=== PATIENT | female | born 1935 | race Caucasian/White ===

== ENCOUNTER 2020-04-28 12:23 | Inpatient (IN) ==
[2020-04-28 13:24] LABS: INR 1.1
[2020-04-28 13:27] LABS: Activated Partial Thrombo Time 30.9 Seconds (26.0-36.0)
[2020-04-28 13:28] LABS: Basophils % 0.6 %; Eosinophils # 0.1 K/mcL (0.0-0.6); Hemoglobin 12.6 g/dL (11.5-15.4); Immature Granulocytes % 0.2 % (0-4); Lymphocytes # 1.6 K/mcL (0.6-4.6); Lymphocytes % 25.6 %; Mean Corpuscular HGB Conc 33.2 g/dL (31.6-35.5); Mean Corpuscular Hemoglobin 29.6 pg (28.0-33.3); Mean Corpuscular Volume 89.4 fL (83.0-100.0); Mean Platelet Volume 10.8 fL (9.4-12.4); Monocytes # 0.4 K/mcL (0.0-1.3); Monocytes % 5.7 %; Neutrophils # 4.2 K/mcL (1.6-8.9); Platelet Count 248 K/mcL (140-400); Red Blood Count 4.25 M/mcL (3.82-4.97); Red Cell Distribution Width 14.3 % (11.5-14.5); Segmented Neutrophils % 66.9 %; White Blood Count 6.3 K/mcL (4.3-11.1)
[2020-04-28 13:44] LABS: BUN/Creatinine Ratio 20 (6-26); Blood Urea Nitrogen 21 mg/dL (8-23); Calcium 9.1 mg/dL (8.6-10.3); Carbon Dioxide 22 mEq/L (23-29); Chloride 108 mEq/L (98-107); Glucose 113 mg/dL (70-105); Lipase 41 Units/L (11-82); Osmolality,Calculated 294 (280-300); Potassium 3.9 mEq/L (3.5-5.1); Sodium 140 mEq/L (136-145); Troponin I 0.03 ng/mL (< 0.04); eGFR For African Americans > 60 (> 60); eGFR For Non-African Americans 51 (> 60)
[2020-04-28] MEDS ORDERED: cefTRIAXone 1,000 MG in 0.9 % Sodium Chloride Mini Bag 100 ML IVPB ONE (14:01)
[2020-04-28] MEDS ORDERED: Azithromycin 500 MG in 0.9 % Sodium Chloride 250 ML IVPB ONE (14:01)
[2020-04-28] MEDS ORDERED: Aspirin 325 MG TABLET PO ONE (14:05)
[2020-04-28] MEDS ORDERED: cefTRIAXone 1,000 MG in Water for inj. (sterile) 10 ML IVP ONE (14:15)
[2020-04-28] MEDS ORDERED: Water for inj. (sterile) 10 ML ONE (14:42)
[2020-04-28] MEDS ORDERED: Perflutren Lipid Microsphere 1.3 ML in 0.9 % Sodium Chloride 8.7 ML IVP PRN (15:51)
[2020-04-28] MEDS ORDERED: Naloxone 0.4 MG/ML INJ IVP PRN (15:51)
[2020-04-28] MEDS ORDERED: Acetaminophen 325 MG TABLET PO PRN (15:51)
[2020-04-28] MEDS ORDERED: Ondansetron 4 MG/2 ML VIAL IVP PRN (15:51)
[2020-04-28] MEDS ORDERED: *HR* HYDROcodone/Acet 5/325 mg TABLET PO PRN (15:51)
[2020-04-28 16:22] LABS: Cholesterol 195 mg/dL (< 200); HDL Cholesterol 39 mg/dL (40-59); LDL Cholesterol,Calculated 124 mg/dL (< 100); Triglycerides 160 mg/dL (< 150)
[2020-04-28] MEDS ORDERED: Nitroglycerin 0.4 MG TAB.SUBL SL PRN (16:32)
[2020-04-28 16:36] LABS: Estimated Average Glucose 111 mg/dl
[2020-04-28 16:53] LABS: Adenovirus Not Detected (Not Detect); Bordetella Pertussis Not Detected (Not Detect); Chlamydophila pneumoniae Not Detected (Not Detect); Coronavirus 229E Not Detected (Not Detect); Coronavirus HKU1 Not Detected (Not Detect); Coronavirus NL63 Not Detected (Not Detect); Coronavirus OC43 Not Detected (Not Detect); Human Metapneumovirus Not Detected (Not Detect); Human Rhinovirus/Enterovirus Not Detected (Not Detect); Influenza A Subtype 2009 H1 Not Detected (Not Detect); Influenza B Not Detected (Not Detect); Mycoplasma pneumoniae Not Detected (Not Detect); Parainfluenza Virus 1 Not Detected (Not Detect); Parainfluenza Virus 2 Not Detected (Not Detect); Parainfluenza Virus 3 Not Detected (Not Detect); Parainfluenza Virus 4 Not Detected (Not Detect); Respiratory Syncytial Virus Not Detected (Not Detect); SARS-CoV-2 Not Detected (Not Detect)
[2020-04-28] MEDS: Furosemide 40 MG/4 ML VIAL IVP SCH (17:15)
[2020-04-29 01:36] LABS: Basophils % 0.4 %; Eosinophils # 0.1 K/mcL (0.0-0.6); Eosinophils % 1.6 %; Hematocrit 37.3 % (35.3-44.9); Immature Granulocytes % 0.1 % (0-4); Lymphocytes # 2.3 K/mcL (0.6-4.6); Mean Corpuscular HGB Conc 32.2 g/dL (31.6-35.5); Mean Corpuscular Hemoglobin 28.7 pg (28.0-33.3); Mean Corpuscular Volume 89.2 fL (83.0-100.0); Monocytes # 0.6 K/mcL (0.0-1.3); Monocytes % 7.7 %; Neutrophils # 4.5 K/mcL (1.6-8.9); Platelet Count 255 K/mcL (140-400); Red Blood Count 4.18 M/mcL (3.82-4.97); Red Cell Distribution Width 14.3 % (11.5-14.5); Segmented Neutrophils % 60.2 %; White Blood Count 7.5 K/mcL (4.3-11.1)
[2020-04-29 02:00] LABS: BUN/Creatinine Ratio 21 (6-26); Blood Urea Nitrogen 21 mg/dL (8-23); Calcium 8.7 mg/dL (8.6-10.3); Carbon Dioxide 23 mEq/L (23-29); Chloride 107 mEq/L (98-107); Glucose 87 mg/dL (70-105); Magnesium 1.9 mg/dL (1.6-2.6); Osmolality,Calculated 294 (280-300); Phosphorous 3.8 mg/dL (2.7-4.5); Potassium 3.5 mEq/L (3.5-5.1); Sodium 141 mEq/L (136-145); eGFR For African Americans > 60 (> 60); eGFR For Non-African Americans 52 (> 60)
[2020-04-29 02:07] LABS: Troponin I 0.04 ng/mL (< 0.04)
[2020-04-29] MEDS: *HR* Enoxaparin 40 MG/0.4 ML SYRINGE SQ SCH (05:09)
[2020-04-29] MEDS: Aspirin 81 MG TAB.CHEW PO SCH (07:44)
[2020-04-29] MEDS: Metoprolol XL (24 HR) Succ 25 MG TAB.ER.24H PO SCH (07:45)
[2020-04-29] MEDS: Furosemide 40 MG/4 ML VIAL IVP SCH (07:46)
[2020-04-29] MEDS ORDERED: *HR* Heparin 10,000 UNIT/10 ML VIAL ONE (13:40)
[2020-04-29] MEDS ORDERED: Nitroglycerin 1,000 MCG/10 ML VIAL IV ONE (13:40)
[2020-04-29] MEDS ORDERED: 0.9 % Sodium Chloride 1,000 ML ONE (13:40)
[2020-04-29] MEDS ORDERED: Heparin 1,000 UNITS/500 mL 500 ML ONE (13:40)
[2020-04-29] MEDS ORDERED: ISOVUE-370 200 ML INFUS..BTL ONE (13:40)
[2020-04-29] MEDS ORDERED: *HR* Midazolam HCl 2 MG/2 ML VIAL ONE (13:59)
[2020-04-29] MEDS ORDERED: *HR* FentaNYL (PF) 100 MCG/2 ML VIAL ONE (13:59)
[2020-04-29] MEDS ORDERED: Tirofiban 12.5 MG/250ML 0 MG/0 ML BAG ONE (14:11)
[2020-04-30] MEDS: *HR* Enoxaparin 40 MG/0.4 ML SYRINGE SQ SCH (05:45)
[2020-04-30 06:25] LABS: Hematocrit 39.6 % (35.3-44.9); Hemoglobin 12.7 g/dL (11.5-15.4); Mean Corpuscular HGB Conc 32.1 g/dL (31.6-35.5); Mean Corpuscular Hemoglobin 29.4 pg (28.0-33.3); Mean Corpuscular Volume 91.7 fL (83.0-100.0); Mean Platelet Volume 10.8 fL (9.4-12.4); Platelet Count 251 K/mcL (140-400); Red Blood Count 4.32 M/mcL (3.82-4.97); Red Cell Distribution Width 14.2 % (11.5-14.5); White Blood Count 6.6 K/mcL (4.3-11.1)
[2020-04-30 06:43] LABS: Calcium 9.2 mg/dL (8.6-10.3); Potassium 3.7 mEq/L (3.5-5.1)
[2020-04-30] MEDS: Aspirin 81 MG TAB.CHEW PO SCH (09:04)
[2020-04-30] MEDS: Metoprolol XL (24 HR) Succ 25 MG TAB.ER.24H PO SCH (09:05)
[2020-04-30] MEDS: Furosemide 40 MG/4 ML VIAL IVP SCH (09:06)
[2020-04-30 16:01] VITALS: BP 130/72
[2020-05-01] MEDS ORDERED: *HR* Enoxaparin 30 MG/0.3 ML SYRINGE SQ SCH (06:00)
== END 2020-04-30 19:24 | disposition short-term general hospital (02) | DRG 286 ==
LOC: SUATTDRO → EMEROOARM 12:23 → 3BNU 12:23
PROVIDERS: ADMIT Internal Medicine; ATTEND Internal Medicine

== ENCOUNTER 2020-06-20 16:08 | Inpatient (IN) ==
[2020-06-20 17:13] LABS: Basophils % 0.2 %; Hematocrit 38.1 % (35.3-44.9); Immature Granulocytes % 0.2 % (0-4); Lymphocytes % 19.3 %; Mean Corpuscular HGB Conc 31.5 g/dL (31.6-35.5); Mean Corpuscular Hemoglobin 28.1 pg (28.0-33.3); Mean Corpuscular Volume 89.2 fL (83.0-100.0); Mean Platelet Volume 10.8 fL (9.4-12.4); Monocytes # 0.4 K/mcL (0.0-1.3); Monocytes % 8.1 %; Neutrophils # 3.9 K/mcL (1.6-8.9); Platelet Count 200 K/mcL (140-400); Red Blood Count 4.27 M/mcL (3.82-4.97); Red Cell Distribution Width 14.6 % (11.5-14.5); Segmented Neutrophils % 72.2 %; White Blood Count 5.3 K/mcL (4.3-11.1)
[2020-06-20 17:17] LABS: INR 1.2; Prothrombin Time 13.6 Seconds (9.4-12.1)
[2020-06-20 17:37] LABS: Alanine Aminotransferase 22 Units/L (7-52); Albumin/Globulin Ratio 1.3 (1.1-2.2); Alkaline Phosphatase 77 Units/L (34-104); Aspartate Amino Transferase 20 Units/L (13-39); BUN/Creatinine Ratio 22 (6-26); Bilirubin,Direct 0.2 mg/dL (0.0-0.2); Bilirubin,Indirect 0.6 mg/dL (0.0-1.0); Bilirubin,Total 0.8 mg/dL (0.3-1.0); Blood Urea Nitrogen 19 mg/dL (8-23); Calcium 9.1 mg/dL (8.6-10.3); Carbon Dioxide 23 mEq/L (23-29); Chloride 103 mEq/L (98-107); Globulin 3.1 g/dL (2.4-3.5); Glucose 104 mg/dL (70-105); Osmolality,Calculated 283 (280-300); Potassium 3.7 mEq/L (3.5-5.1); Sodium 135 mEq/L (136-145); Total Protein 7.1 g/dL (6.4-8.9); Troponin I 0.05 ng/mL (< 0.04); eGFR For African Americans > 60 (> 60); eGFR For Non-African Americans > 60 (> 60)
[2020-06-20] MEDS ORDERED: Aspirin 81 MG TAB.CHEW PO SCH (18:15)
[2020-06-20] MEDS ORDERED: Ondansetron ODT 4 MG TAB.RAPDIS SL PRN (18:41)
[2020-06-20] MEDS ORDERED: Acetaminophen 325 MG TABLET PO PRN (18:41)
[2020-06-20] MEDS ORDERED: Naloxone 0.4 MG/ML INJ IVP PRN (18:41)
[2020-06-20] MEDS: Nitroglycerin 0.4 MG TAB.SUBL SL PRN ×2 (19:10→19:20)
[2020-06-20] MEDS ORDERED: Furosemide 20 MG/2 ML VIAL IVP ONE (20:34)
[2020-06-21 05:20] LABS: Basophils % 0.5 %; Hematocrit 37.1 % (35.3-44.9); Hemoglobin 12.1 g/dL (11.5-15.4); Immature Granulocytes % 0.2 % (0-4); Lymphocytes # 1.2 K/mcL (0.6-4.6); Lymphocytes % 26.7 %; Mean Corpuscular HGB Conc 32.6 g/dL (31.6-35.5); Mean Corpuscular Hemoglobin 28.7 pg (28.0-33.3); Mean Corpuscular Volume 88.1 fL (83.0-100.0); Mean Platelet Volume 10.5 fL (9.4-12.4); Monocytes # 0.3 K/mcL (0.0-1.3); Monocytes % 7.6 %; Neutrophils # 2.8 K/mcL (1.6-8.9); Platelet Count 193 K/mcL (140-400); Red Blood Count 4.21 M/mcL (3.82-4.97); Red Cell Distribution Width 14.6 % (11.5-14.5); White Blood Count 4.4 K/mcL (4.3-11.1)
[2020-06-21 05:23] LABS: INR 1.2; Prothrombin Time 13.8 Seconds (9.4-12.1)
[2020-06-21 05:51] LABS: Troponin I 0.12 ng/mL (< 0.04)
[2020-06-21 05:57] LABS: BUN/Creatinine Ratio 21 (6-26); Blood Urea Nitrogen 20 mg/dL (8-23); Calcium 8.7 mg/dL (8.6-10.3); Carbon Dioxide 23 mEq/L (23-29); Chloride 103 mEq/L (98-107); Glucose 96 mg/dL (70-105); Magnesium 1.7 mg/dL (1.6-2.6); Osmolality,Calculated 286 (280-300); Phosphorous 3.7 mg/dL (2.7-4.5); Potassium 3.7 mEq/L (3.5-5.1); Sodium 137 mEq/L (136-145); eGFR For African Americans > 60 (> 60); eGFR For Non-African Americans 55 (> 60)
[2020-06-21] MEDS ORDERED: *HR* Heparin 5,000 UNIT/ML VIAL IVP PRN ×2 (06:40)
[2020-06-21] MEDS ORDERED: *HR* Heparin 5,000 UNIT/ML VIAL IVP ONE (06:40)
[2020-06-21 07:21] LABS: Heparin anti-factor XA UFH < 0.04 IU/mL (0.30-0.70)
[2020-06-21 07:22] LABS: INR 1.2; Prothrombin Time 13.7 Seconds (9.4-12.1)
[2020-06-21] MEDS: Heparin 25,000UNIT/250ML 1/2NS 25,000 UNIT/250 ML IV.SOLN IVC SCH (07:43)
[2020-06-21] MEDS: Isosorbide MONOnitrate (24 HR) 60 MG TAB.ER.24H PO SCH (07:44)
[2020-06-21] MEDS: Aspirin 81 MG TAB.CHEW PO SCH (07:44)
[2020-06-21] MEDS: Metoprolol XL (24 HR) Succ 50 MG TAB.ER.24H PO SCH (07:44)
[2020-06-21] MEDS ORDERED: NON-FORMULARY MEDICATION 1 EACH EACH (Ezetimibe [Zetia] 10 MG) PO SCH (09:00)
[2020-06-22] MEDS: Furosemide 40 MG/4 ML VIAL IVP SCH (08:36)
[2020-06-22] MEDS: Isosorbide MONOnitrate (24 HR) 60 MG TAB.ER.24H PO SCH (08:36)
[2020-06-22] MEDS: Aspirin 81 MG TAB.CHEW PO SCH (08:36)
[2020-06-22] MEDS: Metoprolol XL (24 HR) Succ 50 MG TAB.ER.24H PO SCH (08:36)
[2020-06-22] MEDS ORDERED: Isosorbide MONOnitrate (24 HR) 30 MG TAB.ER.24H PO ONE (11:39)
[2020-06-22] MEDS: Heparin 25,000UNIT/250ML 1/2NS 25,000 UNIT/250 ML IV.SOLN IVC SCH (23:16)
[2020-06-23] MEDS: QUEtiapine Fumarate 25 MG TABLET PO ONE ×2 (02:23→02:51)
[2020-06-23] MEDS ORDERED: *HR* LORazepam 2 MG/ML VIAL IVP STA (02:32)
[2020-06-23] MEDS ORDERED: *HR* LORazepam 2 MG/ML VIAL ONE (02:36)
[2020-06-23] MEDS: Isosorbide MONOnitrate (24 HR) 30 MG TAB.ER.24H PO SCH (08:47)
[2020-06-23] MEDS: Aspirin 81 MG TAB.CHEW PO SCH (08:47)
[2020-06-23] MEDS: Metoprolol XL (24 HR) Succ 50 MG TAB.ER.24H PO SCH (08:48)
[2020-06-23] MEDS: Furosemide 40 MG/4 ML VIAL IVP SCH (08:48)
[2020-06-23] MEDS ORDERED: Nicotine 21 MG PATCH.TD24 TD SCH (09:45)
[2020-06-23] MEDS ORDERED: Haloperidol Lactate 5 MG/ML VIAL IVP ONE (13:52)
[2020-06-23] MEDS: dexAMETHasone 4 MG TABLET PO SCH (13:57)
[2020-06-23] MEDS ORDERED: Magnesium Sulfate 1 GM/102 ML PIGGYBACK IVPB ONE (20:00)
[2020-06-24] MEDS: Isosorbide MONOnitrate (24 HR) 30 MG TAB.ER.24H PO SCH (09:47)
[2020-06-24] MEDS: Metoprolol XL (24 HR) Succ 50 MG TAB.ER.24H PO SCH (09:47)
[2020-06-24] MEDS: dexAMETHasone 4 MG TABLET PO SCH (09:47)
[2020-06-24] MEDS: Aspirin 81 MG TAB.CHEW PO SCH (09:47)
[2020-06-24] MEDS: Furosemide 40 MG/4 ML VIAL IVP SCH (09:48)
[2020-06-24] MEDS: *HR* Heparin 5,000 UNIT/ML VIAL SQ SCH (20:40)
[2020-06-24] MEDS: Ipratropium 1 PUFF INHALER IH SCH ×2 (20:46→23:32)
[2020-06-25] MEDS: Ipratropium 1 PUFF INHALER IH SCH ×6 (04:00→23:14)
[2020-06-25 04:51] LABS: Hematocrit 36.5 % (35.3-44.9); Hemoglobin 11.4 g/dL (11.5-15.4); Mean Corpuscular HGB Conc 31.2 g/dL (31.6-35.5); Mean Corpuscular Hemoglobin 27.5 pg (28.0-33.3); Mean Corpuscular Volume 88.2 fL (83.0-100.0); Mean Platelet Volume 10.7 fL (9.4-12.4); Platelet Count 220 K/mcL (140-400); Red Blood Count 4.14 M/mcL (3.82-4.97); Red Cell Distribution Width 14.4 % (11.5-14.5); White Blood Count 4.6 K/mcL (4.3-11.1)
[2020-06-25 05:06] LABS: Potassium 3.8 mEq/L (3.5-5.1)
[2020-06-25] MEDS: *HR* Heparin 5,000 UNIT/ML VIAL SQ SCH ×3 (05:35→21:51)
[2020-06-25] MEDS: Aspirin 81 MG TAB.CHEW PO SCH (08:04)
[2020-06-25] MEDS: Metoprolol XL (24 HR) Succ 50 MG TAB.ER.24H PO SCH (08:04)
[2020-06-25] MEDS: Furosemide 40 MG/4 ML VIAL IVP SCH (08:05)
[2020-06-25] MEDS: dexAMETHasone 4 MG TABLET PO SCH (08:05)
[2020-06-25] MEDS: Isosorbide MONOnitrate (24 HR) 30 MG TAB.ER.24H PO SCH (08:05)
[2020-06-26] MEDS: Ipratropium 1 PUFF INHALER IH SCH ×2 (03:58→08:06)
[2020-06-26] MEDS: *HR* Heparin 5,000 UNIT/ML VIAL SQ SCH (05:59)
[2020-06-26 07:31] VITALS: BP 147/76
[2020-06-26] MEDS: Aspirin 81 MG TAB.CHEW PO SCH (09:45)
[2020-06-26] MEDS: dexAMETHasone 4 MG TABLET PO SCH (09:45)
[2020-06-26] MEDS: Metoprolol XL (24 HR) Succ 50 MG TAB.ER.24H PO SCH (09:45)
[2020-06-26] MEDS: Isosorbide MONOnitrate (24 HR) 30 MG TAB.ER.24H PO SCH (09:45)
[2020-06-26] MEDS: Furosemide 40 MG/4 ML VIAL IVP SCH (09:46)
== END 2020-06-26 10:20 ==
LOC: EMEROOARM 16:08 → 3BNU 16:08 → SUATTDRO 06-22 18:44
PROVIDERS: ADMIT General Practice; ATTEND Student in an Organized Health Care Education/Training Program

== ENCOUNTER 2020-06-29 20:20 | Observation (INO) ==
[2020-06-29] MEDS ORDERED: Isovue-370 500 ML BOTTLE IVP ONE (21:55)
[2020-06-29 22:12] LABS: INR 1.1; Prothrombin Time 13.1 Seconds (9.4-12.1)
[2020-06-29 22:23] LABS: Bacteria,Urine Moderate per hpf (None-Few); Bilirubin,Urine Negative (Negative); Blood,Urine Small (Negative); Clarity,Urine Turbid (Clear); Color,Urine Yellow (Yellow); Glucose,Urine (UA) Normal (Normal); Ketones,Urine Negative (Negative); Leukocyte Esterase,Urine Large (Negative); Mucus,Urine Few per lpf (None-Few); Nitrite,Urine Positive (Negative); Protein,Urine 30 mg/dL (Neg-Trace); RBC,Urine 0-3 per hpf (0-3); Renal Epithelial Cells,Urine Few per hpf (None-Few); Specific Gravity,Urine 1.027 (1.010-1.025); Squamous Epithelial Cell,Urine Few per hpf (None-Few); Transitional Epi Cells,Urine Few per hpf (None-Few); Urobilinogen,Urine Normal (Normal); WBC,Urine TNTC per hpf (0-3)
[2020-06-29 22:34] LABS: Albumin 3.7 g/dL (3.5-5.7); Bilirubin,Direct 0.1 mg/dL (0.0-0.2); Bilirubin,Indirect 0.5 mg/dL (0.0-1.0); Bilirubin,Total 0.6 mg/dL (0.3-1.0); Calcium 9.3 mg/dL (8.6-10.3); Globulin 3.7 g/dL (2.4-3.5); Total Protein 7.4 g/dL (6.4-8.9); Troponin I 0.06 ng/mL (< 0.04)
[2020-06-29 23:21] LABS: Basophils % 0.1 %; Eosinophils % 0.1 %; Hematocrit 40.9 % (35.3-44.9); Hemoglobin 13.1 g/dL (11.5-15.4); Immature Granulocytes % 0.8 % (0-4); Lymphocytes # 1.2 K/mcL (0.6-4.6); Lymphocytes % 15.7 %; Mean Corpuscular Volume 87.4 fL (83.0-100.0); Mean Platelet Volume 10.3 fL (9.4-12.4); Monocytes # 0.5 K/mcL (0.0-1.3); Monocytes % 6.4 %; Platelet Count 324 K/mcL (140-400); Red Blood Count 4.68 M/mcL (3.82-4.97); Red Cell Distribution Width 14.2 % (11.5-14.5); Segmented Neutrophils % 76.9 %; White Blood Count 7.5 K/mcL (4.3-11.1)
[2020-06-29 23:26] LABS: Neutrophils # 5.8 K/mcL (1.6-8.9)
[2020-06-30] MEDS ORDERED: cefTRIAXone 1,000 MG in 0.9 % Sodium Chloride Mini Bag 100 ML IVPB ONE (00:01)
[2020-06-30 00:06] LABS: Anisocytosis 1+ (Not Present); Platelet Estimate Normal (Normal); Reactive Lymphocytes Present (Not Present)
[2020-06-30] MEDS ORDERED: Dexamethasone 4 MG/ML VIAL IVP ONE (00:15)
[2020-06-30] MEDS ORDERED: Ondansetron 4 MG/2 ML VIAL IVP PRN (01:10)
[2020-06-30] MEDS ORDERED: Naloxone 0.4 MG/ML INJ IVP PRN (01:10)
[2020-06-30] MEDS ORDERED: Nitroglycerin 0.4 MG TAB.SUBL SL PRN (01:33)
[2020-06-30] MEDS: Ipratropium 1 PUFF INHALER IH SCH ×5 (04:02→19:35)
[2020-06-30] MEDS: *HR* Heparin 5,000 UNIT/ML VIAL SQ SCH ×2 (05:23→17:27)
[2020-06-30 07:12] LABS: VBG HCO3 26 mEq/L (21-27); VBG PCO2 32 mmHg (41-51); VBG PH 7.52 pH Units (7.32-7.42); VBG PO2 64 mmHg (25-50)
[2020-06-30 07:20] LABS: Hematocrit 42.1 % (35.3-44.9); Hemoglobin 13.6 g/dL (11.5-15.4); Mean Corpuscular HGB Conc 32.3 g/dL (31.6-35.5); Mean Corpuscular Hemoglobin 28.1 pg (28.0-33.3); Mean Platelet Volume 10.3 fL (9.4-12.4); Neutrophils # 5.9 K/mcL (1.6-8.9); Platelet Count 317 K/mcL (140-400); Red Blood Count 4.84 M/mcL (3.82-4.97); Red Cell Distribution Width 14.3 % (11.5-14.5); White Blood Count 7.2 K/mcL (4.3-11.1)
[2020-06-30 07:42] LABS: BUN/Creatinine Ratio 41 (6-26); Blood Urea Nitrogen 34 mg/dL (8-23); Calcium 9.2 mg/dL (8.6-10.3); Carbon Dioxide 25 mEq/L (23-29); Chloride 103 mEq/L (98-107); Glucose 117 mg/dL (70-105); Magnesium 2.2 mg/dL (1.6-2.6); Osmolality,Calculated 295 (280-300); Phosphorous 3.5 mg/dL (2.7-4.5); Sodium 138 mEq/L (136-145); Troponin I 0.07 ng/mL (< 0.04); eGFR For African Americans > 60 (> 60); eGFR For Non-African Americans > 60 (> 60)
[2020-06-30] MEDS: Metoprolol XL (24 HR) Succ 50 MG TAB.ER.24H PO SCH (08:28)
[2020-06-30] MEDS: Aspirin 81 MG TAB.CHEW PO SCH (08:28)
[2020-06-30] MEDS: Isosorbide MONOnitrate (24 HR) 30 MG TAB.ER.24H PO SCH (08:28)
[2020-06-30 14:52] LABS: Eosinophils # 0.1 K/mcL (0.0-0.6); Monocytes # 0.1 K/mcL (0.0-1.3); Platelet Estimate Normal (Normal)
[2020-06-30] MEDS ORDERED: cefTRIAXone 1,000 MG in Water for inj. (sterile) 10 ML IVP SCH (22:00)
[2020-07-01] MEDS: Ipratropium 1 PUFF INHALER IH SCH ×4 (00:08→10:50)
[2020-07-01] MEDS: *HR* Heparin 5,000 UNIT/ML VIAL SQ SCH ×2 (05:45→17:25)
[2020-07-01] MEDS: Aspirin 81 MG TAB.CHEW PO SCH (08:27)
[2020-07-01] MEDS: Metoprolol XL (24 HR) Succ 50 MG TAB.ER.24H PO SCH (08:27)
[2020-07-01] MEDS: Isosorbide MONOnitrate (24 HR) 30 MG TAB.ER.24H PO SCH (08:27)
[2020-07-01 09:37] LABS: Basophils % 0.3 %; Eosinophils % 0.3 %; Hematocrit 44.6 % (35.3-44.9); Hemoglobin 14.2 g/dL (11.5-15.4); Immature Granulocytes % 0.9 % (0-4); Lymphocytes # 1.8 K/mcL (0.6-4.6); Lymphocytes % 16.7 %; Mean Corpuscular HGB Conc 31.8 g/dL (31.6-35.5); Mean Corpuscular Hemoglobin 28.1 pg (28.0-33.3); Mean Corpuscular Volume 88.1 fL (83.0-100.0); Mean Platelet Volume 10.4 fL (9.4-12.4); Monocytes # 0.7 K/mcL (0.0-1.3); Monocytes % 6.5 %; Neutrophils # 7.9 K/mcL (1.6-8.9); Platelet Count 381 K/mcL (140-400); Red Blood Count 5.06 M/mcL (3.82-4.97); Red Cell Distribution Width 14.6 % (11.5-14.5); Segmented Neutrophils % 75.3 %; White Blood Count 10.5 K/mcL (4.3-11.1)
[2020-07-01 09:55] LABS: BUN/Creatinine Ratio 42 (6-26); Blood Urea Nitrogen 37 mg/dL (8-23); Calcium 9.3 mg/dL (8.6-10.3); Carbon Dioxide 28 mEq/L (23-29); Chloride 102 mEq/L (98-107); Glucose 134 mg/dL (70-105); Osmolality,Calculated 299 (280-300); Potassium 3.7 mEq/L (3.5-5.1); Sodium 139 mEq/L (136-145); eGFR For African Americans > 60 (> 60); eGFR For Non-African Americans > 60 (> 60)
[2020-07-01] MEDS ORDERED: Lacri-Lube 3.5 GM TUBE BOTH EYES SCH (10:45)
[2020-07-01 15:11] VITALS: BP 117/65
== END 2020-07-01 19:35 | disposition home health service (06) ==
LOC: CDU 20:20 → EMEROOARM 20:20 → SUATTDRO 06-30 00:42 → CDU 06-30 02:00
PROVIDERS: ADMIT Student in an Organized Health Care Education/Training Program; ATTEND Internal Medicine

== ENCOUNTER 2020-08-28 19:46 | Observation (INO) ==
[2020-08-28 20:22] LABS: Basophils # 0.1 K/mcL (0.0-0.2); Basophils % 0.8 %; Eosinophils # 0.2 K/mcL (0.0-0.6); Eosinophils % 2.5 %; Hematocrit 34.4 % (35.3-44.9); Hemoglobin 10.9 g/dL (11.5-15.4); Immature Granulocytes % 0.2 % (0-4); Lymphocytes # 2.1 K/mcL (0.6-4.6); Lymphocytes % 34.2 %; Mean Corpuscular HGB Conc 31.7 g/dL (31.6-35.5); Mean Corpuscular Hemoglobin 27.7 pg (28.0-33.3); Mean Corpuscular Volume 87.3 fL (83.0-100.0); Mean Platelet Volume 9.7 fL (9.4-12.4); Monocytes # 0.4 K/mcL (0.0-1.3); Monocytes % 6.8 %; Neutrophils # 3.3 K/mcL (1.6-8.9); Platelet Count 332 K/mcL (140-400); Red Blood Count 3.94 M/mcL (3.82-4.97); Red Cell Distribution Width 16.8 % (11.5-14.5); Segmented Neutrophils % 55.5 %
[2020-08-28 20:44] LABS: BUN/Creatinine Ratio 25 (6-26); Blood Urea Nitrogen 24 mg/dL (8-23); Calcium 9.6 mg/dL (8.6-10.3); Carbon Dioxide 25 mEq/L (23-29); Chloride 106 mEq/L (98-107); Glucose 99 mg/dL (70-105); Magnesium 1.8 mg/dL (1.6-2.6); Osmolality,Calculated 290 (280-300); Potassium 3.9 mEq/L (3.5-5.1); Sodium 138 mEq/L (136-145); Troponin I 0.03 ng/mL (< 0.04); eGFR For African Americans > 60 (> 60); eGFR For Non-African Americans 55 (> 60)
[2020-08-28] MEDS ORDERED: Isovue-370 500 ML BOTTLE IVP ONE (21:03)
[2020-08-29] MEDS ORDERED: Ondansetron 4 MG/2 ML VIAL IVP PRN (00:56)
[2020-08-29] MEDS ORDERED: Acetaminophen 325 MG TABLET PO PRN (00:56)
[2020-08-29] MEDS ORDERED: Naloxone 0.4 MG/ML INJ IVP PRN (00:56)
[2020-08-29] MEDS ORDERED: Melatonin 3 MG TABLET PO PRN (00:56)
[2020-08-29] MEDS ORDERED: *HR* Labetalol 20 MG/4 ML SYRINGE IVP ONE (02:42)
[2020-08-29 03:51] LABS: Basophils # 0.1 K/mcL (0.0-0.2); Basophils % 0.8 %; Eosinophils # 0.2 K/mcL (0.0-0.6); Hematocrit 31.9 % (35.3-44.9); Hemoglobin 10.1 g/dL (11.5-15.4); Immature Granulocytes % 0.2 % (0-4); Lymphocytes # 2.2 K/mcL (0.6-4.6); Lymphocytes % 37.1 %; Mean Corpuscular HGB Conc 31.7 g/dL (31.6-35.5); Mean Corpuscular Volume 88.4 fL (83.0-100.0); Mean Platelet Volume 9.9 fL (9.4-12.4); Monocytes # 0.5 K/mcL (0.0-1.3); Monocytes % 8.3 %; Platelet Count 292 K/mcL (140-400); Red Blood Count 3.61 M/mcL (3.82-4.97); Red Cell Distribution Width 16.5 % (11.5-14.5); Segmented Neutrophils % 50.6 %; White Blood Count 5.9 K/mcL (4.3-11.1)
[2020-08-29 04:10] LABS: Troponin I 0.05 ng/mL (< 0.04)
[2020-08-29 04:14] LABS: Alanine Aminotransferase 13 Units/L (7-52); Albumin 3.6 g/dL (3.5-5.7); Albumin/Globulin Ratio 1.4 (1.1-2.2); Alkaline Phosphatase 51 Units/L (34-104); Aspartate Amino Transferase 15 Units/L (13-39); BUN/Creatinine Ratio 26 (6-26); Bilirubin,Total 0.7 mg/dL (0.3-1.0); Blood Urea Nitrogen 20 mg/dL (8-23); Calcium 9.1 mg/dL (8.6-10.3); Carbon Dioxide 22 mEq/L (23-29); Chloride 106 mEq/L (98-107); Globulin 2.6 g/dL (2.4-3.5); Glucose 89 mg/dL (70-105); Magnesium 1.7 mg/dL (1.6-2.6); Osmolality,Calculated 286 (280-300); Phosphorous 3.2 mg/dL (2.7-4.5); Potassium 3.4 mEq/L (3.5-5.1); Sodium 137 mEq/L (136-145); Total Protein 6.2 g/dL (6.4-8.9); eGFR For African Americans > 60 (> 60); eGFR For Non-African Americans > 60 (> 60)
[2020-08-29 08:49] VITALS: BP 148/85
[2020-08-29] MEDS ORDERED: Aspirin 81 MG TAB.CHEW PO SCH (09:00)
[2020-08-29] MEDS ORDERED: Metoprolol XL (24 HR) Succ 50 MG TAB.ER.24H PO SCH (09:00)
[2020-08-29] MEDS ORDERED: NON-FORMULARY MEDICATION 1 EACH EACH (Ezetimibe [Zetia] 10 MG Tablet) PO SCH (09:00)
[2020-08-29] MEDS ORDERED: Isosorbide MONOnitrate (24 HR) 60 MG TAB.ER.24H PO SCH (09:00)
[2020-08-29] MEDS ORDERED: *HR* Heparin 5,000 UNIT/ML VIAL SQ SCH (18:00)
== END 2020-08-29 12:40 | disposition home or self-care (01) ==
LOC: 2NENU 19:46 → EMEROOARM 19:46 → SUATTDRO 08-29 00:18 → 2NENU 08-29 00:53
PROVIDERS: ADMIT Internal Medicine; ATTEND Internal Medicine

== ENCOUNTER 2022-03-28 04:12 | Inpatient (IN) ==
[2022-03-28] MEDS ORDERED: Aspirin 325 MG TABLET PO ONE (04:26)
[2022-03-28] MEDS ORDERED: Morphine Sulfate 2 MG/ML SYRINGE IVP ONE (04:32)
[2022-03-28] MEDS: Nitroglycerin 0.4 MG TAB.SUBL SL PRN ×2 (04:33→04:39)
[2022-03-28] MEDS ORDERED: Iopamidol - 370 500 ML MLS IVP ONE (04:37)
[2022-03-28] MEDS ORDERED: Ipratropium/Albuterol Neb 3 ML IH ONE (04:45)
[2022-03-28] MEDS ORDERED: methylPREDNISolone 125 MG/2 ML VIAL IVP ONE (04:45)
[2022-03-28 04:49] LABS: Basophils # 0.1 K/mcL (0.0-0.2); Basophils % 0.5 %; Eosinophils # 0.2 K/mcL (0.0-0.6); Eosinophils % 1.7 %; Hematocrit 41.6 % (35.3-44.9); Hemoglobin 13.4 g/dL (11.5-15.4); Immature Granulocytes % 0.4 % (0-4); Lymphocytes # 2.7 K/mcL (0.6-4.6); Lymphocytes % 24.9 %; Mean Corpuscular HGB Conc 32.2 g/dL (31.6-35.5); Mean Corpuscular Hemoglobin 29.3 pg (28.0-33.3); Mean Corpuscular Volume 90.8 fL (83.0-100.0); Monocytes # 0.3 K/mcL (0.0-1.3); Monocytes % 2.4 %; Neutrophils # 7.5 K/mcL (1.6-8.9); Platelet Count 260 K/mcL (140-400); Red Blood Count 4.58 M/mcL (3.82-4.97); Red Cell Distribution Width 14.1 % (11.5-14.5); Segmented Neutrophils % 70.1 %; White Blood Count 10.7 K/mcL (4.3-11.1)
[2022-03-28 04:59] LABS: ABG Base Excess -2 mEq/L (-2 to 3); ABG HCO3 24 mEq/L (21-27); ABG Oxygen Saturation 90 % (95-98); ABG PCO2 44 mmHg (35-45); ABG PH 7.34 pH Units (7.32-7.45); ABG PO2 64 mmHg (85-104); ABG TCO2 25 mEq/L (20-26)
[2022-03-28 05:17] LABS: Albumin 4.2 g/dL (3.5-5.7); Albumin/Globulin Ratio 1.2 (1.1-2.2); Bilirubin,Total 0.6 mg/dL (0.3-1.0); Calcium 9.4 mg/dL (8.6-10.3); Globulin 3.4 g/dL (2.4-3.5); Magnesium 1.8 mg/dL (1.6-2.6); Potassium 4.2 mEq/L (3.5-5.1); Total Protein 7.6 g/dL (6.4-8.9); Troponin I 0.04 ng/mL (< 0.04)
[2022-03-28 05:28] LABS: Thyroid Stimulating Hormone 7.712 mcIU/mL (0.340-5.600)
[2022-03-28] MEDS ORDERED: Furosemide 40 MG/4 ML VIAL IVP ONE (05:54)
[2022-03-28] MEDS ORDERED: levoFLOXacin 750 MG/150 ML 750 MG/150 ML BAG IVPB ONE (05:57)
[2022-03-28 08:42] LABS: Bacteria,Urine Moderate per hpf (None-Few); Bilirubin,Urine Negative (Negative); Blood,Urine Trace (Negative); Clarity,Urine Clear (Clear); Color,Urine Colorless (Yellow); Glucose,Urine (UA) Normal (Normal); Ketones,Urine Negative (Negative); Leukocyte Esterase,Urine Moderate (Negative); Mucus,Urine Few per lpf (None-Few); Nitrite,Urine Positive (Negative); PH,Urine 6.5 pH Units (5.0-8.0); Protein,Urine Negative (Neg-Trace); Specific Gravity,Urine 1.016 (1.010-1.025); Squamous Epithelial Cell,Urine Few per hpf (None-Few); Urobilinogen,Urine Normal (Normal); WBC,Urine 15-30 per hpf (0-3)
[2022-03-28] MEDS ORDERED: Metoprolol XL (24 HR) Succ 50 MG TAB.ER.24H PO SCH (09:00)
[2022-03-28] MEDS ORDERED: Ranolazine 500 MG TAB.ER.12H PO SCH (09:00)
[2022-03-28] MEDS ORDERED: Isosorbide MONOnitrate (24 HR) 60 MG TAB.ER.24H PO SCH (09:00)
[2022-03-28] MEDS ORDERED: Melatonin 3 MG TABLET PO PRN (09:06)
[2022-03-28] MEDS ORDERED: Ondansetron 4 MG/2 ML VIAL IVP PRN (09:06)
[2022-03-28] MEDS ORDERED: Acetaminophen 325 MG TABLET PO PRN (09:06)
[2022-03-28] MEDS: carvediloL 6.25 MG TABLET PO SCH ×2 (10:44→19:50)
[2022-03-28] MEDS: Aspirin 81 MG TAB.CHEW PO SCH (10:44)
[2022-03-29 02:44] LABS: Calcium 9.3 mg/dL (8.6-10.3); Potassium 3.8 mEq/L (3.5-5.1)
[2022-03-29] MEDS ORDERED: *HR* Labetalol 20 MG/4 ML SYRINGE IVP ONE (03:25)
[2022-03-29] MEDS ORDERED: QUEtiapine Fumarate 25 MG TABLET PO ONE (05:14)
[2022-03-29] MEDS: Aspirin 81 MG TAB.CHEW PO SCH (09:08)
[2022-03-29] MEDS: carvediloL 6.25 MG TABLET PO SCH ×2 (09:09→20:40)
[2022-03-29] MEDS: Piperacillin/Tazobactam 3.375 GM in 0.9 % Sodium Chloride Mini Bag 100 ML IVPB SCH ×3 (10:45→23:51)
[2022-03-30] MEDS: Piperacillin/Tazobactam 3.375 GM in 0.9 % Sodium Chloride Mini Bag 100 ML IVPB SCH ×3 (00:38→16:46)
[2022-03-30] MEDS: Aspirin 81 MG TAB.CHEW PO SCH (09:15)
[2022-03-30] MEDS: carvediloL 6.25 MG TABLET PO SCH ×3 (09:16→20:39)
[2022-03-30 09:32] LABS: Basophils % 0.2 %; Eosinophils # 0.1 K/mcL (0.0-0.6); Eosinophils % 0.5 %; Hematocrit 36.9 % (35.3-44.9); Hemoglobin 12.3 g/dL (11.5-15.4); Immature Granulocytes % 0.2 % (0-4); Lymphocytes # 0.7 K/mcL (0.6-4.6); Lymphocytes % 7.7 %; Mean Corpuscular HGB Conc 33.3 g/dL (31.6-35.5); Mean Corpuscular Hemoglobin 30.1 pg (28.0-33.3); Mean Corpuscular Volume 90.2 fL (83.0-100.0); Mean Platelet Volume 9.8 fL (9.4-12.4); Monocytes # 0.5 K/mcL (0.0-1.3); Monocytes % 5.1 %; Platelet Count 190 K/mcL (140-400); Red Blood Count 4.09 M/mcL (3.82-4.97); Red Cell Distribution Width 14.3 % (11.5-14.5); Segmented Neutrophils % 86.3 %; White Blood Count 9.2 K/mcL (4.3-11.1)
[2022-03-30 09:51] LABS: Calcium 8.7 mg/dL (8.6-10.3); Magnesium 1.7 mg/dL (1.6-2.6); Potassium 3.4 mEq/L (3.5-5.1)
[2022-03-30] MEDS: Albumin 25% 25gram/100mL 25 GM/100 ML IV.SOLN IVPB SCH ×3 (14:17→22:30)
[2022-03-31] MEDS: Piperacillin/Tazobactam 3.375 GM in 0.9 % Sodium Chloride Mini Bag 100 ML IVPB SCH ×2 (00:47→09:43)
[2022-03-31] MEDS: Albumin 25% 25gram/100mL 25 GM/100 ML IV.SOLN IVPB SCH (05:58)
[2022-03-31] MEDS: carvediloL 6.25 MG TABLET PO SCH ×2 (09:35→22:05)
[2022-03-31] MEDS: Aspirin 81 MG TAB.CHEW PO SCH (09:35)
[2022-03-31] MEDS: Ertapenem 1,000 MG in 0.9 % Sodium Chloride Mini Bag 100 ML IVPB SCH (13:49)
[2022-04-01 07:53] VITALS: PULSE 58; TEMP 97.8; O2SAT 96
[2022-04-01] MEDS: carvediloL 6.25 MG TABLET PO SCH (07:54)
[2022-04-01] MEDS: Aspirin 81 MG TAB.CHEW PO SCH (07:54)
[2022-04-01] MEDS: Ertapenem 1,000 MG in 0.9 % Sodium Chloride Mini Bag 100 ML IVPB SCH (07:54)
[2022-04-01 09:06] VITALS: BP 163/81
[2022-04-01] MEDS ORDERED: amLODIPine 5 MG TABLET PO SCH (12:30)
== END 2022-04-01 15:47 | disposition home health service (06) | DRG 291 ==
LOC: 3BNU 04:12 → EMEROOARM 04:12 → 3BNU 08:46 → SUATTDRO 03-29 17:33 → 3BNU 03-30 14:18
PROVIDERS: ADMIT Internal Medicine; ATTEND Registered Nurse